=== PATIENT | female | born 1990 | race Caucasian/White ===

== ENCOUNTER 2022-12-10 13:19 | Outpatient (CLI) | payer MEDICAID, SELFPAY | END 2022-12-10 13:20 | disposition home or self-care (01) | LOC: LKVREF 13:19 | PROVIDERS: Visit Provider Family Medicine | DX: H10.9 Unspecified conjunctivitis (principal) | CPT/HCPCS: 87070; 87186 ==

== ENCOUNTER 2023-03-23 15:42 | Outpatient (CLI) | payer MEDICAID, SELFPAY | END 2023-03-23 15:43 | disposition home or self-care (01) | LOC: LKVREF 15:42 | PROVIDERS: Visit Provider Physician Assistant | DX: H57.89 Other specified disorders of eye and adnexa (principal) | CPT/HCPCS: 87070; 87186 ==